=== PATIENT | male | born 1940 | race Caucasian/White ===

== ENCOUNTER → 2016-07-09 | Outpatient (CLI) | payer MEDICARE, BC ==
--- NOTE | 2016-07-09 13:12 | MR ---
EXAMINATION TYPE: MR angio head wo con DATE OF EXAM: 07/09/2016 1:06 PM COMPARISON: NONE HISTORY: diplopia, lt sided sensory deficit TECHNIQUE: Time of flight images focusing on the [place] were performed without contrast. FINDINGS: The right vertebral artery is dominant. The left posterior communicating artery is visualized. The right is not. Both ophthalmic arteries are visualized. No occlusive disease is seen. No sizable aneurysm is demonstrated. IMPRESSION: NORMAL MRA OF THE [place].
--- NOTE | 2016-07-09 13:28 | MR ---
MRI CERVICAL SPINE: CLINICAL HISTORY: Cervicalgia left-sided sensory defect, diplopia all per order. Bilateral hearing lo ss with numbness and weakness in the left side of body per patient. TECHNIQUE: Multiplanar, multisequence imaging of the cervical spine is performed without IV contrast. COMPARISON: None. FINDINGS: Sagittal images of the cervical spine show the craniocervical junction to appear within nor mal limits. Slight scoliotic curvature is seen on coronal images. The cervical and upper thoracic sp inal cord is normal in course, caliber, and signal. There is mild disc space narrowing C5-C6 level otherwise the vertebral body and intravertebral disk heights are normal. No suspicious large posterio r disc herniations are seen on sagittal images. The bone marrow signal intensity is within normal [place] its. No significant spurring is seen. Axial images show the C2-C3 level to appear within normal limits. Axial images at C3-C4 level show some uncovertebral facet degenerative changes bilaterally contributi ng to mild left greater than right neural foraminal narrowing. Axial images at C4-C5 level show some uncovertebral facet degenerative changes bilaterally contributi ng to mild to moderate right and mild left-sided neural foraminal narrowing. Axial images at C5-C6 level show broad-based central disc protrusion effacing anterior thecal sac and causing asymmetric mild left-sided neural foraminal narrowing. Right-sided neural foramen is patent. Axial images at C6-C7 and C7-T1 levels are felt within normal limits. 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
== END ==
LOC: RADMRIMAIN 12:10
PROVIDERS: ATTEND Nurse Practitioner Acute Care
DX: H53.2 Diplopia (principal); M54.2 Cervicalgia; M41.9 Scoliosis, unspecified; R41.4 Neurologic neglect syndrome
CPT/HCPCS: 36415; 70544; 72141; 81401; 85652; 86038; 86140